=== PATIENT | female | born 1965 | race Caucasian/White ===

== ENCOUNTER → 2017-03-16 | Outpatient (CLI) | payer BC ==
[~2017-03-16] MED LIST: EXEN1INJ3; IBUP-1050 PO; INSDGI SC; OMEP20TA14 PO
--- NOTE | 2017-03-16 09:00 | DIAGNOSTIC IMAGING REPORT ---
SACRUM COCCYX MIN 2 VIEWS CLINICAL HISTORY: BACK PAIN pain COMPARISON STUDY: None FINDINGS: Normal study IMPRESSION: Moderate degenerative changes low lumbar spine. No acute abnormality of the sacrum Electronically signed by: Alexis Cobian M.D. 03/16/2017 8:58 AM Dictated Date/Time: 03/16/2017 8:57 AM
--- NOTE | 2017-03-16 10:31 | DIAGNOSTIC IMAGING REPORT ---
LUMBAR SPINE 5 VIEWS CLINICAL HISTORY: Chronic low back pain. FINDINGS: Five views of the lumbar spine are obtained. No prior studies are available for comparison at the time of dictation. The skeletal structures are osteopenic. There is no radiographic evidence of fracture or malalignment. Vertebral body height is maintained throughout the lumbar spine. There are bilateral pars defects at L5 with 7 mm of anterolisthesis at L5-S1. Alignment is otherwise preserved. Small anterior osteophytes are seen throughout. The transverse and spinous processes appear intact. There is advanced degenerative disc space narrowing at L5-S1 with associated endplate sclerosis. Mild disc space narrowing is seen at L4-L5. The remaining disc spaces appear preserved. Minimal degenerative endplate sclerosis is also identified at L1-L2. The bony pelvis is intact as imaged. Cholecystectomy clips are seen in the right upper quadrant. There is a nonobstructed abdominal bowel gas pattern. There is moderate and age advanced atherosclerotic calcification of the abdominal aorta. IMPRESSION: 1. No acute bony abnormality is seen involving the lumbosacral spine. 2. There are bilateral pars defects at L5 with Grade I anterolisthesis at L5-S1. 3. Osteopenia and spondylotic change as above. Dictated: 03/16/2017 9:21 AM Transcribed: 03/16/2017 10:30 AM [email or web address] Electronically signed by: Wilson Joe M.D. 03/16/2017 10:44 AM Dictated Date/Time: 03/16/2017 9:21 AM
== END | disposition home or self-care (01) ==
LOC: C.RADBC 08:09
PROVIDERS: ATTEND Family Medicine
DX: M53.3 Sacrococcygeal disorders, not elsewhere classified (principal); M54.5 Low back pain; M85.88 Other specified disorders of bone density and structure, other site; M43.17 Spondylolisthesis, lumbosacral region

== ENCOUNTER → 2017-04-07 | Outpatient (CLI) | payer BC ==
--- NOTE | 2017-04-07 12:56 | DIAGNOSTIC IMAGING REPORT ---
LUMBAR SPINE MRI HISTORY: Back pain LUMBAR SPONDYLOLISTHESIS TECHNIQUE: Multiplanar multisequence MRI of the lumbar spine was performed without the use of contrast. COMPARISON: None. FINDINGS: For the purpose of the report the L5-S1 disc space will be located on axial image 27 of 30. Grade 1 anterolisthesis of L5 on S1. 4 mm of anterior subluxation at maximum. Posterior spondylolysis is noted. L1-L2: No significant central canal or neural foraminal narrowing. L2-L3: No significant central canal or neural foraminal narrowing. L3-L4: Very slight disc bulge. No significant impact upon the thecal sac. L4-L5: Focal left central disc herniation. Small extruded disc fragment extending posterior to the superior margin of L5. This measures 9 x 8 mm maximum dimension. Impact upon the thecal sac is minimal. L5-S1: Mild narrowing of the neuroforamina bilaterally secondary to the grade 1 anterolisthesis. No significant impact upon the thecal sac. IMPRESSION: 1. Grade 1 anterolisthesis L5 on S1 associated with a posterior spondylolysis.. 2. This creates mild narrowing of the neuroforamina bilaterally. 3. Focal left central disc herniation L4-L5 with an extruded disc fragment extending posterior to the superior endplate of L5. Impact upon the thecal sac is minimal. Electronically signed by: Alexis Cobian M.D. 04/07/2017 12:54 PM Dictated Date/Time: 04/07/2017 12:50 PM
== END | disposition home or self-care (01) ==
LOC: C.MRIBC 10:47
PROVIDERS: ATTEND Physical Medicine & Rehabilitation
DX: M43.16 Spondylolisthesis, lumbar region (principal); M54.18 Radiculopathy, sacral and sacrococcygeal region; M51.26 Other intervertebral disc displacement, lumbar region

== ENCOUNTER → 2017-04-25 | Day surgery (SDC) | payer BC ==
[2017-04-13 13:25] VITALS: Ht 174 cm; Wt 120.5 kg
[~2017-04-25] VITALS: Ht 174 cm; Wt 120.5 kg
[~2017-04-25] MED LIST changes: +IOPAMIDOL INJ 61% 15 ML VIAL ONE; +LIDOCAINE HCL 1% MPF 5 ML VIAL ONE; +SODIUM CHLORIDE 0.9% INJ 10 ML VIAL ONE
--- NOTE | 2017-04-25 13:50 | History & Physical Bridge - [place] ---
H&P Re-Evaluation Bridge Note: I have examined the patient, reviewed the History & Physical and in the interval since the performance of the History & Physical I have noted the following changes of clinical significance: No changes noted
[2017-04-25 14:14] VITALS: TEMP 36.4
--- NOTE | 2017-04-25 14:21 | Discharge Instructions ---
Discharge Instructions Date of Service April 25, 2017. Visit Reason for Visit: Lumbar Spondylolisthesis Discharge Discharge Diagnosis / Problem: bilateral leg pain Discharge Goals Goal(s): Decrease discomfort, Improve function Medications Stopped Medications Name(s): Ibupophen stopped last . Activity Recommendations Activity Limitations: resume your previous activity Anesthesia . Post Anesthesia Instructions: If you have had General Anesthesia or IV Sedation: * Do not drive today. * Resume driving when surgeon permits. * Do not make important decisions or sign legal documents today. * Call surgeon for: 1. Temperature elevations greater than 101 degrees F. 2. Uncontrollable pain. 3. Excessive bleeding. 4. Persistent nausea and vomiting. 5. Medication intolerance (nausea, vomiting or rash). * For nausea and vomiting use only clear liquids such as: tea, soda, bouillon until nausea subsides, then gradually increase diet as tolerated. * If you have any concerns or questions, call your surgeon's office. If physician is unavailable and it is an emergency, call 911 or go to the nearest emergency room. . Diet Recommendations Recommended Home Diet: resume previous diet Procedures Procedures Performed: Lumbar Epidural steroid Injection Pending Studies Studies pending at discharge: no Medical Emergencies . Who to Call and When: Medical Emergencies: If at any time you feel your situation is an emergency, please call 911 immediately. . Non-Emergent Contact Non-Emergency issues call your: Specialist . . "Provider Documentation" section prepared by Joselito Lo. .
[2017-04-25 14:26] VITALS: BP 144/88; PULSE 108; O2SAT 95
--- NOTE | 2017-04-25 15:07 | OPERATIVE REPORT ---
DATE OF OPERATION: 04/25/2017 PREOPERATIVE DIAGNOSIS: Lumbar spinal stenosis, grade 1 L5-S1 spondylolisthesis with bilateral lower extremity radiculopathies. POSTOPERATIVE DIAGNOSIS: Same. PROCEDURE: Left paramedian L5-S1 intralaminar epidural steroid injection under fluoroscopic guidance. SURGEON: Dr. Joselito Lo. INDICATIONS: The patient is a 52-year-old white female who has had a number of years history of low back pain. She reports it recently is starting to involve neurogenic claudication, particularly with walking and ambulating and the need to sit down or bend forward to sort of relieve this discomfort. She presents today for an epidural steroid injection as she has not responded to favorably to conservative treatment. PHYSICAL EXAMINATION: Pleasant female seated comfortably. She has limitations with both flexion and extension. She has some sciatic notch sensitivity bilaterally. He has normal lower extremity strength, 4+/5 plantar flexor strength. Intact sensation proximally with negative seated straight leg raises. CONSENT: Verbal and written consent was obtained from the patient. Risks and benefits were reviewed. Risks include but are not limited to epidural abscess, epidural hematoma, allergic reaction, dural puncture. The patient wishes to proceed. PROCEDURE: The patient was taken back to the special procedures room of the [facility] where she was maintained in a prone position. Backside was cleansed with Betadine x3 and a dry sterile dressing was applied. Fluoroscope was used to identify the L5-S1 interlaminar space. The overlying skin on the left side was anesthetized with 4 mL of lidocaine 1% with a 25 gauge 1.5-inch needle. A 22-gauge 4-1/2 inch Tuohy needle was then directed towards the intralaminar space and was advanced under lateral fluoroscopic guidance. Loss of resistance was noted at a depth of just under 10 cm. Isovue 300 contrast 1 mL was injected in which demonstrated epidural uptake pattern. This was confirmed by both AP and lateral views. She then underwent injection after negative aspiration of 40 mg of Depo-Medrol, 4 mL of preservative free sodium chloride. Injection was well tolerated. DISPOSITION: 1. The patient is taken out into the discharge recovery area where she will be discharged home once discharge criteria have been met. 2. Follow up in the [facility] office in 2-4 weeks. I attest to the content of the Intraoperative Record and any orders documented therein. Any exceptio ns are noted below.
== END | disposition home or self-care (01) ==
LOC: X.SURG 12:36
PROVIDERS: ATTEND Physical Medicine & Rehabilitation
DX: M48.06 Spinal stenosis, lumbar region (principal); M43.17 Spondylolisthesis, lumbosacral region; E11.9 Type 2 diabetes mellitus without complications; Z90.49 Acquired absence of other specified parts of digestive tract; Z79.4 Long term (current) use of insulin; Z98.890 Other specified postprocedural states; Z87.891 Personal history of nicotine dependence; Z80.1 Family history of malignant neoplasm of trachea, bronchus and lung

== ENCOUNTER → 2017-08-17 | Day surgery (SDC) | payer BC ==
[2017-07-28 14:40] VITALS: Ht 174 cm; Wt 120.5 kg
[~2017-08-17] VITALS: Ht 174 cm; Wt 120.5 kg
[~2017-08-17] MED LIST changes: +BUPIVACAINE 0.25% 2.5MG/ML PF 10 ML VIAL ONE; -INSDGI SC; -IOPAMIDOL INJ 61% 15 ML VIAL ONE; -SODIUM CHLORIDE 0.9% INJ 10 ML VIAL ONE
[2017-08-17 14:17] VITALS: TEMP 36.6
--- NOTE | 2017-08-17 15:09 | History & Physical Bridge - [place] ---
H&P Re-Evaluation Bridge Note: I have examined the patient, reviewed the History & Physical and in the interval since the performance of the History & Physical I have noted the following changes of clinical significance, the correct side is the left side: No changes noted
--- NOTE | 2017-08-17 15:13 | Discharge Instructions ---
Discharge Instructions Date of Service Aug 17, 2017. Visit Reason for Visit: Lumbar Spondylolisthesis Discharge Discharge Diagnosis / Problem: right leg pain Discharge Goals Goal(s): Decrease discomfort, Improve function Activity Recommendations Activity Limitations: resume your previous activity Anesthesia . Post Anesthesia Instructions: If you have had General Anesthesia or IV Sedation: * Do not drive today. * Resume driving when surgeon permits. * Do not make important decisions or sign legal documents today. * Call surgeon for: 1. Temperature elevations greater than 101 degrees F. 2. Uncontrollable pain. 3. Excessive bleeding. 4. Persistent nausea and vomiting. 5. Medication intolerance (nausea, vomiting or rash). * For nausea and vomiting use only clear liquids such as: tea, soda, bouillon until nausea subsides, then gradually increase diet as tolerated. * If you have any concerns or questions, call your surgeon's office. If physician is unavailable and it is an emergency, call 911 or go to the nearest emergency room. . Diet Recommendations Recommended Home Diet: resume previous diet Procedures Procedures Performed: LEFT L4-5 MEDIAL BRANCH BLOCKS Pending Studies Studies pending at discharge: no Medical Emergencies . Who to Call and When: Medical Emergencies: If at any time you feel your situation is an emergency, please call 911 immediately. . Non-Emergent Contact Non-Emergency issues call your: Specialist . . "Provider Documentation" section prepared by Joselito Lo. .
[2017-08-17 15:52] VITALS: BP 117/83; PULSE 92; O2SAT 96
--- NOTE | 2017-08-17 19:30 | OPERATIVE REPORT ---
DATE OF OPERATION: 08/17/2017 PREOPERATIVE DIAGNOSIS: Chronic low back pain, lumbar facet arthropathy. POSTOPERATIVE DIAGNOSIS: Same. PROCEDURE: Left L4-5 medial branch facet blocks. INDICATIONS: The patient is a 52-year-old white female that presents today for left-sided L4-L5 medial branch blocks. She has had these done one time and they were diagnostically successful in relieving her axial back pain that radiated to the top of the buttocks area. She presents today for a second block. As it is successful, she will move on towards a denervation procedure. PHYSICAL EXAMINATION: Pleasant female seated comfortably in no apparent distress. She has point tenderness to palpation over L4-L5 facet joint on the left, worse with rotation and extension. She had intact sensation distally with negative seated straight leg raises. CONSENT: Verbal and written consent was obtained from the patient. Risks and benefits were reviewed. Risks include but are not limited to abscess and allergic reaction. The patient wishes to proceed. PROCEDURE IN DETAIL: The patient was taken back to the special procedures room of the [facility]. She was maintained in a prone position. Backside was cleansed with Betadine x3 and a dry sterile dressing was applied. Fluoroscope was used to identify a left L4 transverse process and the left L5 transverse process. The overlying skin was anesthetized with 1.5 mL of lidocaine 1% with a 25 gauge 1.5-inch needle. A 25 gauge 3.5-inch needle was then contacted the bony target at each site and then injected at the L4 transverse process junction and the L5 transverse process junction on the left with 1 mL of bupivacaine 0.25% at each site. Injection was well tolerated. DISPOSITION: 1. The patient was taken out into the discharge recovery area where she will be discharged home once discharge criteria have been met. 2. Follow up in the [facility] office in 2-4 weeks. I attest to the content of the Intraoperative Record and any orders documented therein. Any exception s are noted below.
== END | disposition home or self-care (01) ==
LOC: X.SURG 13:54
PROVIDERS: ATTEND Physical Medicine & Rehabilitation
DX: M43.16 Spondylolisthesis, lumbar region (principal); M54.16 Radiculopathy, lumbar region; Z79.4 Long term (current) use of insulin

== ENCOUNTER → 2017-08-24 | Day surgery (SDC) | payer BC ==
[2017-07-28 14:44] VITALS: Ht 174 cm; Wt 120.5 kg
[~2017-08-24] VITALS: Ht 174 cm; Wt 120.5 kg
[~2017-08-24] MED LIST changes: -LIDOCAINE HCL 1% MPF 5 ML VIAL ONE; +LIDOCAINE MPF 1% INJ 30 ML SDV (L&D) INFIL ONE
--- NOTE | 2017-08-24 13:26 | Discharge Instructions ---
Discharge Instructions Date of Service Aug 24, 2017. Visit Reason for Visit: Lumbar Spondylolisthesis Discharge Discharge Diagnosis / Problem: low back pain Discharge Goals Goal(s): Decrease discomfort, Improve function Activity Recommendations Activity Limitations: resume your previous activity Anesthesia . Post Anesthesia Instructions: If you have had General Anesthesia or IV Sedation: * Do not drive today. * Resume driving when surgeon permits. * Do not make important decisions or sign legal documents today. * Call surgeon for: 1. Temperature elevations greater than 101 degrees F. 2. Uncontrollable pain. 3. Excessive bleeding. 4. Persistent nausea and vomiting. 5. Medication intolerance (nausea, vomiting or rash). * For nausea and vomiting use only clear liquids such as: tea, soda, bouillon until nausea subsides, then gradually increase diet as tolerated. * If you have any concerns or questions, call your surgeon's office. If physician is unavailable and it is an emergency, call 911 or go to the nearest emergency room. . Diet Recommendations Recommended Home Diet: resume previous diet Procedures Procedures Performed: Left L4-5 Radio Frequency Denervation Pending Studies Studies pending at discharge: no Medical Emergencies . Who to Call and When: Medical Emergencies: If at any time you feel your situation is an emergency, please call 911 immediately. . Non-Emergent Contact Non-Emergency issues call your: Specialist . . "Provider Documentation" section prepared by Joselito Lo. .
[2017-08-24 13:40] VITALS: BP 127/77; PULSE 88; TEMP 36.6; O2SAT 95
--- NOTE | 2017-08-24 13:53 | OPERATIVE REPORT ---
DATE OF OPERATION: 08/24/2017 PREOPERATIVE DIAGNOSES: Chronic low back pain and lumbar facet arthropathy L4-L5 on the left. POSTOPERATIVE DIAGNOSES: Same. PROCEDURE: Left L4-L5 facet radiofrequency denervation. INDICATIONS: The patient is a 52-year-old white female, who has had a series of medial branch blocks at L4-L5 on the left that diagnostically relieved her pain. She presents today for a denervation to relieve her pain on a more long lasting basis. PHYSICAL EXAMINATION: Pleasant female seated comfortably. She has point tenderness to palpation of the left L4-L5 facet area. This is worse with extension and rotation. She has normal lower extremity strength. Negative seated straight leg raises. CONSENT: Verbal and written consent was obtained from the patient. Risks and benefits were reviewed. Risks include, but are not limited to abscess, allergic reaction and denervation. She wishes to proceed. DESCRIPTION OF PROCEDURE: The patient was taken back to the special procedures room of the [facility]. She was maintained in a prone position. Backside was cleansed with Betadine x3 and a dry sterile dressing was applied. Fluoroscope was used to identify the L4 transverse process and the L5 transverse process on the left side. Overlying skin was anesthetized with 3 mL of lidocaine 1% with a 25-gauge 1-1/2 inch needle at each site. A 22-gauge 10-cm [place] needle was placed at each site, contacting bony target at the transverse process junction. It would sensory stimulated to provoke stimulation of 0.2 volts at each site. Motor stimulation provoked local paraspinal twitching, but nothing radiating down the leg. She then underwent anesthetization with 1 mL lidocaine 1% at each site and then radiofrequency denervation 80 degrees at 100 seconds x2 at the L4 site and the L5 site and then this was followed by injection of 1 mL of bupivacaine 0.25%. The procedure was well tolerated. The patient was able to freely converse throughout the procedure. DISPOSITION: 1. The patient was taken out into the discharge recovery area, where she will be discharged home once discharge criteria have been met. 2. Follow up in the [facility] office in 2-4 weeks. I attest to the content of the Intraoperative Record and any orders documented therein. Any exception s are noted below.
== END | disposition home or self-care (01) ==
LOC: X.SURG 11:57
PROVIDERS: ATTEND Physical Medicine & Rehabilitation
DX: M54.5 Low back pain (principal); G89.29 Other chronic pain; M46.96 Unspecified inflammatory spondylopathy, lumbar region; Z79.4 Long term (current) use of insulin